=== PATIENT | male | born 1980 | race Caucasian/White ===

== ENCOUNTER 2021-08-15 13:10 | Emergency (ER) | payer OTHER ==
[2021-08-15] MEDS ORDERED: Lidocaine 1% 20 ML MDV INFILT ONE (13:11)
[2021-08-15] MEDS ORDERED: Diphtheria,Pertussis(Acell),Tetanus Vaccine 0.5 ML Syringe IM ONE (13:57)
[2021-08-15] MEDS ORDERED: Ketorolac 30 MG/ML SDV IM ONE (13:57)
[2021-08-15] MEDS ORDERED: Bacitracin Oint 1 GM U/D Packet TOP ONE (15:07)
== END 2021-08-15 16:50 | disposition home or self-care (01) ==
LOC: FB.ED 13:10
DX: S81.811A Laceration without foreign body, right lower leg, initial encounter (principal); R07.81 Pleurodynia; Z23 Encounter for immunization; V49.49XA Driver injured in collision with other motor vehicles in traffic accident, initial encounter; Y92.410 Unspecified street and highway as the place of occurrence of the external cause
CPT/HCPCS: 12001; 71101; 90471; 90715; 96372; 99284; J1885

== ENCOUNTER 2025-04-28 02:02 | Emergency (ER) | payer OTHER | END 2025-04-28 02:15 | LOC: FB.ED 02:02 | DX: S00.81XA Abrasion of other part of head, initial encounter (principal); F41.9 Anxiety disorder, unspecified; F43.10 Post-traumatic stress disorder, unspecified; Z88.0 Allergy status to penicillin; W22.8XXA Striking against or struck by other objects, initial encounter | CPT/HCPCS: 99283 ==